=== PATIENT | female | born 1995 | race Caucasian/White ===

== ENCOUNTER 2017-05-30 12:20 | Emergency (ER) | payer BC ==
[~2017-05-30] VITALS: Ht 172.7 cm; Wt 68.0 kg
[~2017-05-30 12:20] MED LIST: AMOXICILLIN500 M1 PO; NOHOMEMEDICATIONS
[2017-05-30 13:04] LABS: URINE BLOOD 3+ (Negative); URINE CLARITY CLEAR; URINE COLOR YELLOW; URINE GLUCOSE-RANDOM NEGATIVE (Negative); URINE KETONES NEGATIVE (Negative); URINE LEUKOCYTES-REFLEX NEGATIVE (Negative); URINE NITRITE-REFLEX NEGATIVE (Negative); URINE PROTEIN TRACE (Negative); URINE SPECIFIC GRAVITY 1.015 (1.005-1.030)
[2017-05-30 13:07] LABS: ICTOTEST (BILI CONFIRMATORY) Negative (Negative); URINE BILIRUBIN 1+ (Negative)
[2017-05-30 13:14] LABS: SQUAMOUS 4-10 Moderate /LPF (0-3); URINE RBC 3-10 Few /HPF (0-2); URINE WBC-REFLEX 0-5 Rare /HPF (0-5)
[2017-05-30 13:15] LABS: CASTS None Seen /LPF (None Seen); CRYSTALS None Seen /LPF (None Seen); MUCUS 0-3 Light strn/LPF (None Seen)
[2017-05-30] MEDS ORDERED: NAPROSYN500 MG PO (13:23)
[2017-05-30 13:57] VITALS: BP 115/71
== END 2017-05-30 13:58 | disposition home or self-care (01) ==
LOC: M.ERS 12:20
PROVIDERS: Physician Assistant
DX: N94.6 Dysmenorrhea, unspecified (principal)